=== PATIENT | male | born 1970 | race African-American/Black ===

== ENCOUNTER 2017-03-18 00:03 | Emergency (ER) | payer OTHER ==
[2017-03-18 00:08] VITALS: BP 137/97; PULSE 106; RESP 18; TEMP 98.1; O2SAT 94
[2017-03-18] MEDS ORDERED: IBUPROFEN 200 MG TAB PO ONE (00:20)
--- NOTE | 2017-03-18 00:32 | EDPHY ---
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 States that he hit his left knee on a part of a patient's bed at work. He hit the lateral aspect of his knee and has had pain there ever since. He states that it feels like it is clicking and unstable. States that it feels similar to a meniscus injury that he had scoped on his right knee several years ago. He is able the ambulate but has pain. He also is complaining of swelling. Laceration or abrasion. This happened earlier today. REVIEW OF SYSTEMS: Constitutional: denies: chills, fever, recent illness, recent injury EENTM: denies: blurred vision, double vision, nose congestion Respiratory: denies: cough, shortness of breath Cardiac: denies: chest pain, irregular heart rate, lightheadedness, palpitations Gastrointestinal/Abdominal: denies: abdominal pain, diarrhea, nausea, vomiting, blood streaked stools Genitourinary: denies: dysuria, frequency, hematuria, pain Musculoskeletal: See HPI Skin: denies: lesions, rash, jaundice, bruising Neurological: denies: headache, numbness, paresthesia, tingling, dizziness, weakness Hematologic/Lymphatic: denies: blood clots, easy bleeding, easy bruising Immunologic/allergic: denies: HIV/AIDS, transplant EXAM: GENERAL: Well-appearing, well-nourished and in no acute distress. HEAD: Atraumatic, normocephalic. EYES: Pupils equal round and reactive to light, extraocular movements intact, sclera anicteric, conjunctiva are normal. ENT: TMs normal, nares patent, oropharynx clear without exudates. Moist mucous membranes. NECK: Normal range of motion, supple without lymphadenopathy or JVD. LUNGS: Breath sounds clear to auscultation bilaterally and equal. No wheezes rales or rhonchi. HEART: Regular rate and rhythm without murmurs, rubs or gallops. ABDOMEN: Soft, nontender, normoactive bowel sounds. No guarding, no rebound. No masses appreciated. BACK: No CVA tenderness, no spinal tenderness, step-offs or deformities EXTREMITIES: Left knee pain and mild effusion, no obvious deformity. No appreciable tendon laxity. No erythema, no abrasion or laceration. NEUROLOGICAL: Cranial nerves II through XII grossly intact. Normal speech, normal gait. 5/5 strength, normal movement in all extremities, normal sensation PSYCH: Normal mood, normal affect. SKIN: Warm, dry, normal turgor, no visible rashes or lesions. Source: Patient Exam Limitations: No limitations - Personal History Current Tetanus/Diphtheria Vaccine: Unsure Current Tetanus Diphtheria and Acellular Pertussis (TDAP): Unsure - Medical/Surgical History Hx Asthma: No Hx Chronic Respiratory Disease: No Hx Diabetes: No Hx Cardiac Disease: No Hx Renal Disease: No Hx Cirrhosis: No Hx Alcoholism: No Hx HIV/AIDS: No Hx Splenectomy or Spleen Trauma: No Other PMH: right shoulder surgery and right knee surgery - Family History Significant Family History: No pertinent family hx - Social History Smoking Status: Current every day smoker Alcohol Use: Sober Drug Use: None Constitutional: Initial Vital Signs Temperature (C) 36.7 C 03/18/17 00:05 Heart Rate 106 H 03/18/17 00:05 Respiratory Rate 18 03/18/17 00:05 Blood Pressure 137/97 H 03/18/17 00:05 O2 Sat (%) 94 03/18/17 00:05 O2 Delivery Mode Room Air Allergies/Adverse Reactions: No Known Allergies Allergy (Unverified 11/28/16 04:23) Home Medications: Medication Instructions Recorded Metoprolol Oral Susp (*) 03/18/17 Medical Decision Making - Diagnostics Imaging Results: X-ray: Knee x-ray was obtained. I viewed the images myself on the PACS system. My interpretation of the images is: Moderate effusion, no other fractures or abnormalities. The radiologist interpretation is pending. Imaging: I viewed and interpreted images myself Procedures: Procedure: Splint placement. A straight leg brace splint was applied. After application of the splint I returned and re-examined the patient. The splint was adequately immobilizing the joint and distal to the splint the patient's circulation and sensation was intact. ED Course/Re-evaluation: We discussed the patient's x-rays which are reassuring. Suspected traumatic effusion possibly a ligamentous or meniscal injury. I will refer him to Orthopedics. He has been placed in a straight leg brace. Will also have him follow up with worker's Comp. Differential Diagnosis: Partial list of the Differential diagnosis considered include but were not limited to; traumatic effusion, meniscus injury, ligamentous injury and although unlikely based on the history and physical exam, I also considered fracture, dislocation, vascular injury. I discussed these differential diagnoses and the plan with the patient as well as the usual and expected course. The patient understands that the diagnosis is provisional and that in medicine we are not always correct and that further workup is often warranted. Usual and customary warnings were given. All of the patient's questions were answered. The patient was instructed to return to the emergency department should the symptoms at all worsen or return, otherwise to followup with the physician as we discussed. - Data Points Medications Given: Discontinued Medications Ibuprofen (Motrin) 800 mg PO EDNOW ONE Stop: 03/18/17 00:21 Last Admin: 03/18/17 00:23 Dose: 800 mg Departure - Departure Disposition: Home, Routine, Self-Care Clinical Impression: Knee pain, acute Qualifiers: Laterality: left Qualified Code(s): M25.562 - Pain in left knee Condition: Fair Instructions: Knee Pain (ED) Referrals: Pippa CAREY [Other] - As per Instructions Aureliano Diamond MD [Medical Doctor] - As per Instructions Stand Alone Forms: Work Comp Follow Up
== END 2017-03-18 01:04 | disposition home or self-care (01) ==
DX: S89.92XA Unspecified injury of left lower leg, initial encounter (principal); F17.200 Nicotine dependence, unspecified, uncomplicated; W22.8XXA Striking against or struck by other objects, initial encounter; Y92.129 Unspecified place in nursing home as the place of occurrence of the external cause; Y99.0 Civilian activity done for income or pay; Y93.89 Activity, other specified
CPT/HCPCS: L1830